=== PATIENT | female | born 1950 | race Caucasian/White ===

== ENCOUNTER 2018-04-06 02:28 | Inpatient (IN) | payer SELFPAY ==
[~2018-04-06] VITALS: Ht 157.5 cm; Wt 57.6 kg
[2018-04-06] MEDS ORDERED: ONDANSETRON HCL 4MG/2ML INJ IV STA (02:52)
[2018-04-06] MEDS ORDERED: MECLIZINE 25MG TABLET PO ONE (03:00)
[2018-04-06] MEDS ORDERED: ASPIRIN 81MG TABLET PO ONE (03:00)
[2018-04-06 03:16] LABS: HEMATOCRIT. 37.7 % (36.0-48.0); HEMOGLOBIN. 12.7 g/dL (12.0-16.0); MEAN CORPUSCULAR HEMOGLOBIN 29.1 pg (28.0-32.0); MEAN CORPUSCULAR VOLUME 86.5 fL (81.0-99.0); PLATELET 296 x1000/uL (130-400); RED BLOOD CELL COUNT 4.36 mill/uL (4.2-5.4); RED CELL DISTRIBUTION WIDTH 13.3 % (11.6-14.6)
[2018-04-06 03:18] LABS: CHLORIDE 98 mEq/L (98-107)
[2018-04-06 03:21] LABS: PARTIAL THROMBOPLASTIN TIME 27.5 sec (23.4-31.0); PROTHROMBIN TIME 10.4 sec (9.1-11.1)
[2018-04-06 03:22] LABS: ETHANOL BLOOD < 10 mg/dL
[2018-04-06 03:27] LABS: CREATINE KINASE 83 IU/L (26-192)
[2018-04-06 04:22] LABS: ATYPICAL LYMPHOCYTES 1; PLATELET ESTIMATE NORMAL
[2018-04-06 08:00] VITALS: BP 124/65
[2018-04-06] MEDS: LEVOTHYROXINE SODIUM 50MCG TABLET PO SCH (09:15)
[2018-04-06] MEDS ORDERED: ONDANSETRON HCL 4MG/2ML INJ IV PRN (09:15)
[2018-04-06] MEDS ORDERED: CLONIDINE 0.1MG TABLET PO PRN (09:15)
[2018-04-06] MEDS ORDERED: MECLIZINE 25MG TABLET PO PRN (09:15)
[2018-04-06 09:49] VITALS: BP 124/65
[2018-04-06 12:00] VITALS: BP 125/68
[2018-04-06 12:21] LABS: LDL CHOLESTEROL 86 mg/dL (5-100)
[2018-04-06 12:22] LABS: HDL CHOLESTEROL 66 mg/dL (40-59)
[2018-04-06] MEDS ORDERED: CAND1TAB14 PO (13:10)
[2018-04-06] MEDS: AMLODIPINE 5MG TABLET PO SCH ×2 (13:44→21:29)
[2018-04-06 16:00] VITALS: BP 114/51
[2018-04-06 20:00] VITALS: BP 142/59
[2018-04-07] VITALS: BP 104/49
[2018-04-07 04:00] VITALS: BP 126/59
[2018-04-07 06:46] LABS: HEMATOCRIT 38.3 % (36.0-48.0); MEAN CORPUSCULAR HEMOGLOBIN 29.5 pg (28.0-32.0); MEAN CORPUSCULAR VOLUME 86.5 fL (81.0-99.0); PLATELET 312 x1000/uL (130-400); RED BLOOD CELL COUNT 4.42 mill/uL (4.2-5.4); RED CELL DISTRIBUTION WIDTH 13.4 % (11.6-14.6)
[2018-04-07 06:56] LABS: CHLORIDE 103 mEq/L (98-107)
[2018-04-07 08:00] VITALS: BP 124/67
[2018-04-07] MEDS: AMLODIPINE 5MG TABLET PO SCH (10:28)
[2018-04-07] MEDS: LEVOTHYROXINE SODIUM 50MCG TABLET PO SCH (10:28)
[2018-04-07] MEDS ORDERED: LEVO50TA8 PO (13:01)
[2018-04-07 16:42] VITALS: BP 126/59
== END 2018-04-07 17:00 | disposition home or self-care (01) | DRG 48 ==
LOC: ER 02:28 → 8WST 02:53 → EDBEDREQ 05:30 → ENRESERV 07:03
PROVIDERS: ADMIT Internal Medicine; ATTEND Internal Medicine
DX: G90.8 Other disorders of autonomic nervous system (principal); D72.1 Eosinophilia; I10 Essential (primary) hypertension; E03.9 Hypothyroidism, unspecified; K59.00 Constipation, unspecified; K62.5 Hemorrhage of anus and rectum; K64.9 Unspecified hemorrhoids; I25.10 Atherosclerotic heart disease of native coronary artery without angina pectoris; R35.1 Nocturia; F32.9 Major depressive disorder, single episode, unspecified; F95.9 Tic disorder, unspecified; R42 Dizziness and giddiness; Z80.6 Family history of leukemia; Z84.89 Family history of other specified conditions
CPT/HCPCS: 36415; 70450; 70551; 71045; 76700; 80048; 80053; 80061; 82550; 83036; 83690; 83880; 84443; 84484; 85025; 85027; 85610; 85730; 93005; 93306; 96374; 97162; 99285; G0482; J2405; J8597